=== PATIENT | female | born 1955 | race Caucasian/White ===

== ENCOUNTER → 2017-05-26 | Outpatient (CLI) | payer OTHER, BC | LOC: BMCIMAGING 07:09 | PROVIDERS: ATTEND Internal Medicine | DX: R10.11 Right upper quadrant pain (principal); K76.0 Fatty (change of) liver, not elsewhere classified ==

== ENCOUNTER → 2017-09-14 | Outpatient (CLI) | payer OTHER, BC | LOC: CIMAGING 07:50 | PROVIDERS: ATTEND Internal Medicine Critical Care Medicine | DX: R91.1 Solitary pulmonary nodule (principal); J44.9 Chronic obstructive pulmonary disease, unspecified; Z87.891 Personal history of nicotine dependence | CPT/HCPCS: 71250-PO ==

== ENCOUNTER → 2018-09-15 | Outpatient (CLI) | payer BC, OTHER | LOC: BMCIMAGING 12:23 | PROVIDERS: ATTEND Family Medicine | DX: M79.604 Pain in right leg (principal); I82.4Z1 Acute embolism and thrombosis of unspecified deep veins of right distal lower extremity ==

== ENCOUNTER → 2018-12-28 | Outpatient (CLI) | payer OTHER | LOC: BRMIMAGING 14:35 | PROVIDERS: ATTEND Internal Medicine Critical Care Medicine | DX: R06.02 Shortness of breath (principal); J44.9 Chronic obstructive pulmonary disease, unspecified; I82.429 Acute embolism and thrombosis of unspecified iliac vein | CPT/HCPCS: 93971-PO ==